=== PATIENT | female | born 1950 | race Caucasian/White ===

== ENCOUNTER 2022-11-10 08:15 | Day surgery (SDC) | payer OTHER ==
[~2022-11-10] VITALS: Ht 152.4 cm; Wt 56.3 kg
[~2022-11-10 08:15] MED LIST: ALEN70 PO; ASPI81EC PO; CALCAVITD PO; FISH1000 PO; MULVITMINE PO; ZOLM5 PO
[2022-11-10] MEDS ORDERED: NIAC500 (10:22)
[2022-11-10] MEDS ORDERED: ELIQUIS2.5 MG (10:22)
[2022-11-10 12:04] VITALS: BP 132/76
--- NOTE | 2022-11-10 12:33 | NUR ---
11/10/[address] CONFIRMED PLACEMENT OF MEDIPORT AT 1233 PER MARYELLEN IN XRAY.
== END 2022-11-10 12:43 | disposition home or self-care (01) ==
LOC: ORSCSDS 08:15
PROVIDERS: Surgery
PROC: 0JH60WZ Insertion of Totally Implantable Vascular Access Device into Chest Subcutaneous Tissue and Fascia, Open Approach (ICD-10-PCS; principal; 2022-11-10 11:15)
DX: C54.1 Malignant neoplasm of endometrium (principal); I10 Essential (primary) hypertension; Z79.899 Other long term (current) drug therapy
CPT/HCPCS: 77001; C1788; J0690; J1642; J2001; J2405; J2704; J2795; J3010; J7120

== ENCOUNTER 2022-11-17 12:05 | Day surgery (SDC) | payer OTHER ==
[~2022-11-17] VITALS: Ht 152.4 cm; Wt 53.9 kg
[~2022-11-17 12:05] MED LIST changes: +ELIQUIS2.5 MG; +NIAC500
[2022-11-17] MEDS ORDERED: ALEN10 (13:32)
[2022-11-17] MEDS ORDERED: SUMA5NI (13:32)
[2022-11-17 15:15] VITALS: BP 109/66
== END 2022-11-17 15:05 | disposition home or self-care (01) ==
LOC: ORSCSDS 12:05
PROVIDERS: Internal Medicine Gastroenterology
PROC: 0DBM8ZX Excision of Descending Colon, Via Natural or Artificial Opening Endoscopic, Diagnostic (ICD-10-PCS; principal; 2022-11-17 14:30)
DX: Z86.010 Personal history of colon polyps (principal); D12.4 Benign neoplasm of descending colon; K64.8 Other hemorrhoids; I48.91 Unspecified atrial fibrillation; Z79.82 Long term (current) use of aspirin; Z79.899 Other long term (current) drug therapy
CPT/HCPCS: 88305; J0461; J2001; J2405; J2704; J7120; Q9968